=== PATIENT | female | born 1950 | race Caucasian/White ===

== ENCOUNTER → 2016-05-24 | Outpatient (CLI) | payer OTHER ==
[~2016-05-24] MED LIST: ADVIL200 MG PO; ASPIRIN81 M2 PO; CALCIUM 600 MG1 EACH PO; CELECOXIB200 MG PO; DOK PLUS TABLE1 EACH PO; ELAVIL25 MG PO; ENDOCET 5-3251 EACH PO; FLEXERIL5 MG PO; LASIX20 MG PO; LEVOXYL88 MCG PO; LISINOPRIL20 MG PO; LISINOPRIL5 MG PO; LORADAMED10 MG PO; LOVENOX40 MG/0.4 SC; METOPROLOL SUCC50 MG PO; MULTIPLE VITAM1 EACH PO; NEURONTIN300 MG PO; PERCOCET 5/31 TABLET PO; PROVENTIL HFA6.7 GM IH; TOPROL XL25 MG PO; TRAMADOL HCL50 MG PO; VITAMIN D32000 UNI1 PO
== END | disposition home or self-care (01) ==
DX: M16.12 Unilateral primary osteoarthritis, left hip (principal); R26.2 Difficulty in walking, not elsewhere classified; M62.81 Muscle weakness (generalized); M25.652 Stiffness of left hip, not elsewhere classified
CPT/HCPCS: 97110 GP; 97150 GO; 97161 GP; 97165 GO

== ENCOUNTER 2016-08-01 08:54 | Inpatient (IN) | payer OTHER ==
[~2016-08-01] VITALS: Ht 157.5 cm; Wt 94.7 kg
[~2016-08-01 08:54] MED LIST changes: +AMLODIPINE BESYL5 MG PO; +IBUPROFEN800 MG PO; +LOSARTAN POTAS100 MG PO; +METOPROLOL SUC100 MG PO; +SERTRALINE HCL50 MG PO
[2016-08-01 09:36] VITALS: BP 137/87
[2016-08-01 14:32] LABS: MCH 31.1 PG (29.0-34.0); MCHC 32.8 G/DL (30.0-36.0); MEAN PLAT.VOLUME 11.4 uM^3 (9.5-12.4); PLATELET COUNT 148 K/uL (156-360); RBC DIS.WIDTH-CV 12.4 % (11.8-14.6); RBC DIS.WIDTH-SD 42.9 % (39-53); RED BLOOD COUNT 3.79 M/uL (3.80-5.20); WHITE BLOOD COUNT 7.8 K/uL (4.1-10.2)
[2016-08-01 16:05] VITALS: BP 109/60
[2016-08-01 19:56] VITALS: BP 100/57
[2016-08-02 00:30] VITALS: BP 111/68
[2016-08-02 04:20] VITALS: BP 113/62
[2016-08-02 05:47] LABS: HEMATOCRIT 34.3 % (36.0-46.0)
[2016-08-02 06:11] LABS: ANION GAP 7 MEQ/L (2-14); CHLORIDE 101 MEQ/L (99-109); GFR ESTIMATE (CALCULATED) > 59 mL/min/; GLUCOSE 153 mg/dL (70-99); POTASSIUM 3.7 MEQ/L (3.7-5.4); SAMPLE HEMOLYSIS CHECK 0; SAMPLE ICTERIC CHECK 0; SAMPLE LIPEMIA CHECK 0; SODIUM 132 MEQ/L (136-147); UREA NITROGEN (BUN) 10 mg/dL (9-23)
[2016-08-02 07:40] VITALS: BP 117/62
[2016-08-02 12:00] VITALS: BP 126/57
[2016-08-02 15:52] VITALS: BP 121/64
[2016-08-02 20:16] VITALS: BP 115/69
[2016-08-03] VITALS (7 sets, daily range): BP systolic 96–117; BP diastolic 51–62
[2016-08-03 09:34] LABS: HEMATOCRIT 33.7 % (36.0-46.0); MCV 94.9 FL (83-99)
[2016-08-03 09:59] LABS: ALKALINE PHOSPHATASE 55 IU/L (3-129); ANION GAP 6 MEQ/L (2-14); CHLORIDE 98 MEQ/L (99-109); GFR ESTIMATE (CALCULATED) > 59 mL/min/; GLUCOSE 192 mg/dL (70-99); POTASSIUM 3.8 MEQ/L (3.7-5.4); SAMPLE HEMOLYSIS CHECK 0; SAMPLE ICTERIC CHECK 0; SAMPLE LIPEMIA CHECK 0; SODIUM 132 MEQ/L (136-147); TOTAL BILIRUBIN 0.6 MG/DL (0.0-1.0); UREA NITROGEN (BUN) 9 mg/dL (9-23)
[2016-08-04 00:30] VITALS: BP 115/61
[2016-08-04 04:30] VITALS: BP 106/61
[2016-08-04] MEDS ORDERED: SENNA PLUS TAB1 EACH PO (08:04)
[2016-08-04] MEDS ORDERED: LOVENOX40 MG/0.4 SC (08:04)
[2016-08-04] MEDS ORDERED: ENDOCET 5-3251 EACH PO (08:04)
[2016-08-04 08:19] VITALS: BP 97/60
[2016-08-04 11:48] VITALS: BP 102/58
[2016-08-04] MEDS ORDERED: FLEXERIL10 MG PO (14:21)
[2016-08-04] MEDS ORDERED: PERCOCET 10/1 TABLET PO (14:26)
[2016-08-04] MEDS ORDERED: LIDODERM 5% P1 PATCH TD (14:30)
[2016-08-04] MEDS ORDERED: MAG-AL PLUS SUS30 ML PO (14:38)
== END 2016-08-04 13:30 | DRG 470 ==
LOC: 2SOUTH 08:54 → 3WEST 08:54 → 2SOUTH 09:18 → 3WEST 15:46
PROVIDERS: Nurse Practitioner Family; Orthopaedic Surgery
PROC: 0SRB01A Replacement of Left Hip Joint with Metal Synthetic Substitute, Uncemented, Open Approach (ICD-10-PCS; principal; 2016-08-04)
DX: M16.12 Unilateral primary osteoarthritis, left hip (principal); N99.89 Other postprocedural complications and disorders of genitourinary system; R33.8 Other retention of urine; J45.909 Unspecified asthma, uncomplicated; E06.3 Autoimmune thyroiditis; G89.29 Other chronic pain; M54.5 Low back pain; I10 Essential (primary) hypertension; K59.00 Constipation, unspecified
CPT/HCPCS: 73501; 80048; 80053; 85014; 85018; 85027; C1713; J0131; J1170; J1650; J2250; J2405; J2765; J7030; J7050

== ENCOUNTER 2016-08-04 14:08 | Inpatient (IN) | payer OTHER ==
[~2016-08-04] VITALS: Ht 157.5 cm; Wt 99.7 kg
[2016-08-04 13:30] VITALS: BP 126/71
[~2016-08-04 14:08] MED LIST changes: +SENNA PLUS TAB1 EACH PO
[2016-08-04] MEDS ORDERED: FLEXERIL10 MG PO (14:21)
[2016-08-04] MEDS ORDERED: PERCOCET 10/1 TABLET PO (14:26)
[2016-08-04] MEDS ORDERED: LIDODERM 5% P1 PATCH TD (14:30)
[2016-08-04] MEDS ORDERED: MAG-AL PLUS SUS30 ML PO (14:38)
[2016-08-04 23:58] VITALS: BP 96/56
[2016-08-05 05:11] VITALS: BP 107/60
[2016-08-05 05:15] LABS: HEMATOCRIT 33.4 % (36.0-46.0); MCH 31.1 PG (29.0-34.0); MCHC 32.6 G/DL (30.0-36.0); MCV 95.2 FL (83-99); MEAN PLAT.VOLUME 11.2 uM^3 (9.5-12.4); PLATELET COUNT 179 K/uL (156-360); RBC DIS.WIDTH-CV 12.7 % (11.8-14.6); RBC DIS.WIDTH-SD 44.4 % (39-53); RED BLOOD COUNT 3.51 M/uL (3.80-5.20); WHITE BLOOD COUNT 8.9 K/uL (4.1-10.2)
[2016-08-05 05:40] LABS: ALKALINE PHOSPHATASE 62 IU/L (3-129); ANION GAP 7 MEQ/L (2-14); CHLORIDE 99 MEQ/L (99-109); GFR ESTIMATE (CALCULATED) > 59 mL/min/; POTASSIUM 4.4 MEQ/L (3.7-5.4); SAMPLE HEMOLYSIS CHECK 0; SAMPLE ICTERIC CHECK 0; SAMPLE LIPEMIA CHECK 0; SODIUM 135 MEQ/L (136-147); TOTAL BILIRUBIN 0.7 MG/DL (0.0-1.0); UREA NITROGEN (BUN) 11 mg/dL (9-23)
[2016-08-05 05:58] LABS: GLUCOSE 111 mg/dL (70-99)
[2016-08-05 15:05] VITALS: BP 108/59
[2016-08-06 05:12] VITALS: BP 93/55
[2016-08-06 15:34] VITALS: BP 111/60
[2016-08-07 04:39] VITALS: BP 122/77
[2016-08-07 15:30] VITALS: BP 112/63
[2016-08-07] MEDS ORDERED: ASCORBIC ACID500 M3 PO (19:13)
[2016-08-07] MEDS ORDERED: MYCOSTATIN 100,60 ML PO (19:13)
[2016-08-07] MEDS ORDERED: FOLIC ACID1 MG PO (19:13)
[2016-08-07] MEDS ORDERED: LIDODERM 5% P1 PATCH TD (19:13)
[2016-08-07] MEDS ORDERED: DOCUSATE SODIU100 MG PO (19:13)
[2016-08-07] MEDS ORDERED: THERAGRAN1 TABLET PO (19:13)
[2016-08-08 05:00] VITALS: BP 115/60
== END 2016-08-08 14:45 | disposition home health service (06) | DRG 560 ==
LOC: 3WEST 14:08
PROVIDERS: Physical Medicine & Rehabilitation Pain Medicine
PROC: F07M0ZZ Range of Motion and Joint Mobility Treatment of Musculoskeletal System - Whole Body (ICD-10-PCS; principal; 2016-08-04)
DX: Z47.1 Aftercare following joint replacement surgery (principal); M16.12 Unilateral primary osteoarthritis, left hip; E88.09 Other disorders of plasma-protein metabolism, not elsewhere classified; E87.1 Hypo-osmolality and hyponatremia; E77.8 Other disorders of glycoprotein metabolism; Z91.040 Latex allergy status; D62 Acute posthemorrhagic anemia; Z68.41 Body mass index [BMI] 40.0-44.9, adult; E83.51 Hypocalcemia; D69.6 Thrombocytopenia, unspecified; R26.2 Difficulty in walking, not elsewhere classified; K59.00 Constipation, unspecified; Z96.642 Presence of left artificial hip joint; E66.9 Obesity, unspecified; M16.11 Unilateral primary osteoarthritis, right hip; Z96.643 Presence of artificial hip joint, bilateral; I10 Essential (primary) hypertension; G47.00 Insomnia, unspecified; G89.18 Other acute postprocedural pain; R33.9 Retention of urine, unspecified; E06.3 Autoimmune thyroiditis; E03.9 Hypothyroidism, unspecified; M54.5 Low back pain; M54.30 Sciatica, unspecified side; R79.89 Other specified abnormal findings of blood chemistry; J45.909 Unspecified asthma, uncomplicated; Z87.898 Personal history of other specified conditions
CPT/HCPCS: 80053; 85027; 87651 90; 93971; 97110 GO; 97530 GP; 99202; J1650